=== PATIENT | male | born 1955 ===

== ENCOUNTER 2019-07-17 13:45 | Outpatient (CLI) | payer BC ==
--- NOTE | 2019-07-17 13:58 | RAD ---
EXAM: Chest Two Views 07/17/2019 1:55 PM HISTORY: Shortness of breath COMPARISON: None. FINDINGS: Heart: Normal in size and contour. Pulmonary vessels: Normal. Costophrenic angles: Clear. Lungs: No acute airspace consolidation. Pneumothorax: None. Osseous structures:Intact. There is scattered degenerative and osteoarthritic change present. Additional findings: The aorta is mildly tortuous with mild vascular calcifications. IMPRESSION: No significant acute intrathoracic disease.
== END 2019-07-17 13:46 | disposition home or self-care (01) ==
LOC: BICRAD 13:45
PROVIDERS: ATTEND Family Medicine
DX: R06.02 Shortness of breath (principal)
CPT/HCPCS: 71046